=== PATIENT | female | born 1950 ===

== ENCOUNTER 2016-10-31 08:28 | Day surgery (SDC) | payer MEDICARE ==
[2016-10-29 09:26] VITALS: BMI 31.7
[2016-10-31] MEDS ORDERED: Lidocaine 1% Inj (20ml) ONE (09:54)
[2016-10-31] MEDS ORDERED: Bupivacaine HCl 0.25% PF (10 ml) Inj ONE (09:54)
[2016-10-31] MEDS ORDERED: ceFAZolin IV 1 gm in Dextrose 0 ML IVPB ONE (09:54)
[2016-10-31] MEDS ORDERED: Bacitracin 500 Units/gm Oint Foilpak UD ONE (11:51)
[2016-10-31] MEDS ORDERED: Oxycodone/Acetaminophen 5/325 mg Tab PO PRN (11:58)
--- NOTE | 2016-10-31 12:44 | OP ---
PROCEDURE DATE: 10/31/2016 PREOPERATIVE DIAGNOSIS: Mass of the right leg. POSTOPERATIVE DIAGNOSIS: Mass of the right leg. PROCEDURE PERFORMED: Wide and deep excision of mass of the right leg with adjacent tissue transfer thom lobo. SURGEON: Leonard Sen MD ANESTHESIA: General. ESTIMATED BLOOD LOSS: 30 mL. POSTOPERATIVE CONDITION: Stable. INDICATIONS FOR SURGERY: This is a 66-year-old female with a mass of her right leg who now undergo a wide and deep excision. PROCEDURE: The patient taken to the operating room, placed in the supine position. The right leg wa s prepped and draped and local anesthesia was infiltrated. A generous elliptical incision was made s urrounding the mass. It was dissected into the fascia and muscle and completely removed. Bleeding w as controlled using the Bovie. A larger muscular blood vessel was repaired. The wound was irrigated with saline. Generous tissue flaps were raised using the Bovie and adjacent tissue transfer closure was performed using multiple layers of Monocryl, subcuticular Monocryl, and skin clips. The patient tolerated procedure well, returned to recovery room in stable condition. Leonard Sen MD cc: [id number] TT: 10/31/2016 12:43:25 sn
[2016-10-31 16:18] VITALS: RESP 15; O2SAT 99
[2016-10-31 16:19] VITALS: BP 130/76; PULSE 72; TEMP 98
== END 2016-10-31 13:00 | disposition home or self-care (01) ==
LOC: C.SDS 08:28
PROVIDERS: ATTEND Surgery
DX: R22.41 Localized swelling, mass and lump, right lower limb (principal)

== ENCOUNTER 2018-04-05 12:18 | Emergency (ER) | payer MEDICAID, MEDICARE, OTHER ==
[2018-04-05 12:19] VITALS: BMI 31.8
[2018-04-05 12:37] VITALS: RESP 18; TEMP 98.8; O2SAT 98
[2018-04-05] MEDS ORDERED: Tetracaine 0.5% Ophth (OR ONLY) ONE (13:08)
[2018-04-05] MEDS ORDERED: Fluorescein 1 mg Ophthalmic Strip ONE (13:09)
[2018-04-05] MEDS ORDERED: Ciprofloxacin 0.3% OPTH SOLN OU STA (13:14)
[2018-04-05] MEDS ORDERED: Oxycodone/Acetaminophen 5/325 mg Tab PO STA (13:15)
--- NOTE | 2018-04-05 13:17 | C.PDOC ---
History Of Present Illness 68 year old female presents to the emergency department complaining of eye pain after accidentally poking her right eye with her own fingernail. Patient states that there is tearing on both eyes, but more on the right than left. Otherwise she denies any vision changes, periorbital swelling, dizziness, or headache. Time Seen by Provider: 04/05/18 12:48 Chief Complaint (Nursing): Eye Problem History Per: Patient History/Exam Limitations: no limitations Onset/Duration Of Symptoms: Days Current Symptoms Are (Timing): Still Present Past Medical History Reviewed: Historical Data, Nursing Documentation, Vital Signs Vital Signs: Last Vital Signs Temp 98.8 F 04/05/18 12:35 Pulse 78 04/05/18 13:37 Resp 18 04/05/18 13:37 BP 140/85 04/05/18 13:37 Pulse Ox 98 04/05/18 17:07 - Medical History PMH: Arthritis, Diverticulitis, Gall Bladder Disease, HTN, Hypercholesterolemia Denies: Chronic Kidney Disease Surgical History: Cholecystectomy - [facility] Procedures VACCINATION NEC (05/02/14) Family History: States: No Known Family Hx - Social History Hx Alcohol Use: No Hx Substance Use: No Review Of Systems Except As Marked, All Systems Reviewed And Found Negative. Eyes: Positive for: Pain (Right eye). Negative for: Vision Change, Other ( Periorbital swelling) Neurological: Negative for: Weakness, Numbness, Headache, Dizziness Physical Exam - Physical Exam Appears: Well, Non-toxic, No Acute Distress Skin: Normal Color, Warm, Dry Head: Atraumatic, Normacephalic Eye(s): bilateral: Other (Conjunctival erythema (More on right eye than left); fluorescein uptake in right eye at 8 o clock) Neck: Normal ROM Neurological/Psych: Oriented x3, Normal Speech, Normal Cognition, Normal Cranial Nerves Gait: Steady ED Course And Treatment O2 Sat by Pulse Oximetry: 98 (RA) Pulse Ox Interpretation: Normal Progress Note: Percocet and ciloxan administered. Patient is resting comfortably. Patient will be discharged home and is instructed to follow up with development and planning engineer. Disposition - Disposition Disposition: HOME/ ROUTINE Disposition Time: 13:15 Condition: STABLE Additional Instructions: Follow up with Receptionist Secretary within 1-2 days. Return to ED if feel worse. Prescriptions: Ciprofloxacin 0.3% [Ciloxan 0.3% Ophth SOLN] 1 drop OS Q2 #1 bottle traMADol [Ultram] 50 mg PO Q6 #20 tab Instructions: Corneal Abrasion (DC) Forms: [employer] (Romansh) Print Language: CITIZEN OF [place] - Clinical Impression Clinical Impression: Corneal abrasion - PA / [employer] / Resident Statement MD/DO has reviewed & agrees with the documentation as recorded. - Scribe Statement The provider has reviewed the documentation as recorded by the Scribe Linda Shea All medical record entries made by the Scribe were at my direction and personally dictated by me. I have reviewed the chart and agree that the record accurately reflects my personal performance of the history, physical exam, medical decision making, and the department course for this patient. I have also personally directed, reviewed, and agree with the discharge instructions and disposition.
[2018-04-05] MEDS ORDERED: Oxycodone/Acetaminophen 5/325 mg Tab ONE (13:21)
[2018-04-05 13:38] VITALS: BP 140/85; PULSE 78
== END 2018-04-05 13:37 | disposition home or self-care (01) ==
LOC: C.ER 12:18
DX: S05.01XA Injury of conjunctiva and corneal abrasion without foreign body, right eye, initial encounter (principal); W22.8XXA Striking against or struck by other objects, initial encounter